=== PATIENT | female | born 1990 | race Caucasian/White ===

== ENCOUNTER → 2023-04-20 | Outpatient (CLI) | payer OTHER ==
--- NOTE | 2023-04-20 15:32 | XR ---
EXAMINATION TYPE: XR knee complete bilateral DATE OF EXAM: 04/20/2023 CLINICAL HISTORY: Bilateral knee pain. TECHNIQUE: Three views of the bilateral knees are obtained. COMPARISON: None. FINDINGS: There is no acute fracture/dislocation evident in either knee. Symmetric mild narrowing in the patellofemoral compartments. No significant spurring is seen. The overlying soft tissue appears unremarkable bilaterally. IMPRESSION: As Above.
--- NOTE | 2023-04-20 15:34 | XR ---
EXAMINATION TYPE: XR hand complete RT DATE OF EXAM: 04/20/2023 CLINICAL HISTORY: Pain for 2 months TECHNIQUE: Frontal, lateral and oblique images of the right hand are obtained. COMPARISON: None. FINDINGS: There is no acute fracture/dislocation evident in the right hand. The joint spaces in the right hand appear within normal limits. The overlying soft tissue appears unremarkable. IMPRESSION: As above.
== END | disposition home or self-care (01) ==
LOC: RADXRMAIN 15:10
PROVIDERS: ATTEND Family Medicine
DX: M25.562 Pain in left knee (principal); M25.561 Pain in right knee; M79.641 Pain in right hand; G89.29 Other chronic pain

== ENCOUNTER → 2023-09-09 | Outpatient (CLI) | payer OTHER ==
--- NOTE | 2023-09-09 12:47 | P.SLEEP ---
History of Present Illness DATE: 09/09/2023 CONSULTATION/NEW PATIENT EVALUATION HISTORY OF PRESENT ILLNESS/SLEEP-WAKE EVALUATION: 33-year-old lady had been evaluated in the sleep center for possible obstructive sleep apnea hypopnea syndrome. SLEEP SCHEDULE: Usually sleep schedule from 121 AM until 8 -9 AM on weekdays and from 12 AM until 1012 AM on weekend. FALLING ASLEEP: Patient has difficulties to fall asleep, used to date in bedroom. DURING SLEEP: Patient sleeps in different positions with snoring and awakenings from sleep 2 times with one episode of nocturia. Sometimes positive history of hypnogogical hallucinations, no sleep paralysis, or cataplexy. DURING THE DAY/WAKE STATE: Patient may fill tiredness and sleepiness during the day. [place] sleepiness scale is [place] Sleepiness Scale is 7. Usually patient doesn't take naps. PAST MEDICAL HISTORY: Episodes of possible cardiac arrhythmia, Lyme disease, depression. PAST SURGICAL HISTORY: Tonsillectomy. MEDICATIONS: None at the present time. SOCIAL HISTORY: Negative for smoking, alcohol consumption occasional. FAMILY HISTORY: Hypertension, acid reflux, diabetes, mental illness. REVIEW OF SYSTEMS: Snoring, multiple awakenings from sleep, episodes of sleepiness during the day. No fevers. No double vision. No recent chest pain. No shortness of breath. No abdominal pain. No bleeding episodes. No blood in urine. No seizure episodes. PHYSICAL EXAMINATION: GENERAL: A pleasant patient without any distress. VITAL SIGNS: BP 109/76 , HR 82 , RR 16 , weight 133.4 pounds, height 5 foot 3.5 inches, body mass index 23.1 . HEENT: PERRLA, EOMI. Evaluation of oropharynx showed tongue protrudes midline, low position of soft palate Mallampati 3. NECK: Supple. No JVD. Thyroid is not palpable. 13 inches in circumference. LUNGS: Clear to percussion and to auscultation. Good air exchange. No wheezing or rhonchi. HEART: S1, S2 regular. No murmurs, gallops or rubs. ABDOMEN: Soft and nontender. Bowel sounds are present. No organomegaly appreciated. EXTREMITIES: No clubbing or cyanosis. CASH MANAGEMENT SPECIALIST: Awake, alert, and oriented x3. Cranial nerves 2 to 7 intact. There is no fasciculation or atrophy noted. No focal deficits observed. ASSESSMENT: 1. Snoring, awakenings from sleep, low position of soft palate Mallampati 3, episodes of sleepiness. Possible obstructive sleep apnea hypopnea syndrome. 2. History of possible cardiac arrhythmia. 3. History of Lyme disease. 4. History of dizziness episodes. 5 history of depression. 6 . Status post tonsillectomy. 7. Sleep delay syndrome PLAN: 1. Polysomnography for evaluation of patient's breathing during sleep. 2. Following plan after evaluating sleep test. 3. Preferable position during sleep on the side. 4. No driving if patient feels any sleepiness. Patient is aware of civil and criminal liability for unsafe driving. 5. Sleep hygiene with regular sleep time for at least 7.5-8 hours. 6. As much as possible bright light exposure in the morning and is less as possible explore to blue llight in the evening. Thank you very much for referring this patient for consultation. Sincerely, Jacky Delacruz MD, PhD, FAASM. Diplomat of [place] [employer], Sleep Medicine Board by [place] [employer] [employer] Packing Tractor Machine Operator of [facility] [place] Sleep Note - Sleep Note Sleep Note: Temperature: Pulse Rate: Respiratory Rate: Blood Pressure: SpO2: Height: Weight: BMI: Neck Circumference:
== END ==
LOC: 3 N SLEEP 11:38
PROVIDERS: ATTEND Internal Medicine
DX: R06.83 Snoring (principal); F32.A Depression, unspecified; A69.20 Lyme disease, unspecified; R42 Dizziness and giddiness; G47.21 Circadian rhythm sleep disorder, delayed sleep phase type; Z90.89 Acquired absence of other organs; Z98.890 Other specified postprocedural states
CPT/HCPCS: 99211

== ENCOUNTER → 2023-09-24 | Outpatient (CLI) | payer OTHER ==
--- NOTE | 2023-09-24 08:28 | US ---
EXAMINATION TYPE: US abdomen complete DATE OF EXAM: 09/24/2023 COMPARISON: NONE CLINICAL INDICATION: Female, 33 years old with history of R11.0 NAUSEA; Nausea for 6 months, abdomina l discomfort TECHNIQUE: Multiple sonographic images of the abdomen are obtained. FINDINGS: EXAM MEASUREMENTS: Liver Length: 16.2 cm Gallbladder Wall: 0.2 cm CBD: 0.2 cm Spleen: 8.9 cm Right Kidney: 9.8 x 4.0 x 4.4 cm Left Kidney: 9.3 x 4.4 x 4.1 cm Pancreas: Tail obscured by overlying bowel gas Liver: wnl Gallbladder: no evidence of stones Evidence for sonographic Baum's sign: no CBD: wnl Spleen: wnl Right Kidney: no evidence of hydronephrosis Left Kidney: no evidence of hydronephrosis Upper IVC: wnl Abd Aorta: visualized portions appears wnl, mid obscured by overlying bowel gas The liver is homogenous. The intrahepatic portion of the IVC and proximal abdominal aorta are within normal limits. The midportion of the abdominal aorta is obscured by overlying bowel gas. There is n o evidence of cholelithiasis. Common bile duct is unremarkable. The visualized portions of the panc reas are homogenous. The tail is obscured by overlying bowel gas. The spleen is unremarkable. Kidney s are symmetric and free of hydronephrosis. No renal lesions are seen. IMPRESSION: No ultrasound evidence for an acute process.
== END | disposition home or self-care (01) ==
LOC: RADUSWWP 07:36
PROVIDERS: ATTEND Family Medicine
DX: R11.0 Nausea (principal)
CPT/HCPCS: 76700

== ENCOUNTER 2023-12-14 19:11 | Outpatient (CLI) | payer OTHER ==
--- NOTE | 2023-12-16 15:08 | P.PCN ---
Description of Procedure: POLYSOMNOGRAPHY REPORT PROCEDURE(S)/DATE(S): Polysomnography 12/14/2023 CLINICAL: Patient has been seen in the sleep center for evaluation of obstructive sleep apnea-hypopnea syndrome. Please see my consultation. Sleep study has been done for evaluation of patient breathing during the sleep. PROCEDURE: The standard montage for clinical polysomnography included the electroencephalogram, the electrooculogram, the mentalis surface electromyography and Lead II cardiography. The respiratory battery consisted of measurements of nasal/buccal air flow, pressure transducer measurements from nose, thoracic and/or abdominal effort and intercostal surface electromyography. Video monitoring has been done to check for any parasomnia events. Nocturnal oxyhemoglobin saturations were obtained by finger oximetry. Step-haywood titration with positive airway pressure was utilized to control the respiratory events, if necessary. RESULTS: During the diagnostic sleep study sleep efficiency was slightly decreased to 85.8 %. Latency to sleep onset was increased to 36.0 min. Sleep architecture showed stage NI was normal 6.5 %, Delta sleep was practically absent 0.3 %, REM sleep was normal 20.0 %. Respiratory channel showed 0 obstructive apneas, 0 mixed apneas, 0 central apneas, 11 hypopneas with lowest oxygen level 90%. Total apnea hypopnea index was 1.9. Heart rate was in the range between 52 and 64, average 57. EMG showed 24.7 periodic limb movements per hour with 0.2 micro-arousals per hour. IMPRESSIONS: 1. No significant respiratory abnormalities have been documented during the sleep study. Normal oxygenation during sleep. 2. Periodic limb movements have been documented, but with only few micro- arousals related to leg movements. Please see other impressions from consultation PLAN: 1. Sleep hygiene with regular time in bed for at least 7-1/2 hours. 2. No driving if feeling sleepiness. 3. Please check iron profile including ferritin level. Low level of iron may increase the risk for periodic limb movements. Thank you very much for allowing me to participate in the management of your patient. Sincerely, Jacky Delacruz MD, PhD, FAASM. Diplomat of [place] [employer], Sleep Medicine Board by [place] [employer] Undercover Agent of [facility] [place]
== END 2023-12-15 05:30 | disposition home or self-care (01) ==
LOC: 3 N SLEEP 19:11
PROVIDERS: ATTEND Internal Medicine
DX: G47.33 Obstructive sleep apnea (adult) (pediatric) (principal); G47.61 Periodic limb movement disorder
CPT/HCPCS: 95810